=== PATIENT | male | born 1980 | race Two or more races ===

== ENCOUNTER → 2020-07-18 08:00 | Outpatient (CLI) | payer OTHER | END | disposition home or self-care (01) | LOC: LAB 08:00 → ADM 13:45 → AMB-ENDOS 07-25 13:45 → ADM 07-25 13:45 → EDSTATUS 07-25 13:45 | PROVIDERS: ATTEND Colon & Rectal Surgery | DX: K29.00 Acute gastritis without bleeding (principal); R11.0 Nausea; K21.9 Gastro-esophageal reflux disease without esophagitis; Z80.0 Family history of malignant neoplasm of digestive organs; K92.1 Melena; Z03.818 Encounter for observation for suspected exposure to other biological agents ruled out; D68.8 Other specified coagulation defects ==

== ENCOUNTER 2020-10-23 08:52 | Outpatient (CLI) | payer OTHER | END 2020-10-23 08:57 | disposition home or self-care (01) | LOC: SONOGRAMA 08:52 | PROVIDERS: ATTEND Pathology Anatomic Pathology & Clinical Pathology | DX: E04.1 Nontoxic single thyroid nodule (principal) ==